=== PATIENT | male | born 1985 | race Caucasian/White ===

== ENCOUNTER 2019-03-22 18:40 | Emergency (ER) | payer OTHER ==
[~2019-03-22] VITALS: Ht 185.4 cm; Wt 104.3 kg
[~2019-03-22 18:40] MED LIST: PRM25T PO; RNT150T PO
[2019-03-22 21:06] LABS: HEMOGLOBIN 14.1 G/DL (13.3-17.7); MEAN PLATELET VOLUME 8.4 FL (7.4-10.4); RED CELL DISTRIBUTION WIDTH 12.3 % (10.0-14.5); WHITE BLOOD COUNT 6.9 10^3/uL (4.3-11.0)
--- NOTE | 2019-03-22 21:28 | NUR ---
CALLED REPORT TO RAKEL KHALIL @ [facility]
[2019-03-22] MEDS ORDERED: ENOXAPARIN 100 MG/1 ML (LOVENOX) SYR SC ONE (21:30)
--- NOTE | 2019-03-22 21:37 | ED Lower Extremity ---
General Chief Complaint: Lower Extremity Stated Complaint: RT LEG PAIN,SWELLING Nursing Triage Note: Pt complaining of right leg pain that started a few days ago. Leg is swollen, no redness present. Nursing Sepsis Screen: No Definite Risk Source: patient Exam Limitations: no limitations History of Present Illness Date Seen by Provider: March 22, 2019 Time Seen by Provider: 20:02 Initial Comments This 33-year-old gentleman presents to the emergency room with 3-4 days of progressive pain and swelling in the right lower extremity between the knee and ankle. He denies any injury of any kind. He denies any sedentary periods of time. He has an active job as a kori. He does smoke. He has no history of DVT but he is concerned about DVT at this time. He denies any chest pain or shortness of breath. Allergies and Home Medications Allergies Coded Allergies: Cefaclor (Verified Adverse Reaction, Mild, hives, 02/17/12) Home Medications Apixaban 5 Mg Tablet, 10 MG PO BID Prescribed by: KIM OLSEN on 03/22/192150 Promethazine Hcl 25 Mg Tablet, 1 TAB PO Q8HR PRN, (Reported) Ranitidine Hcl 150 Mg Tablet, 1 TAB PO BID Prescribed by: SATINDER ROQUE on 02/17/12 0253 Patient Home Medication List Home Medication List Reviewed: Yes Review of Systems Constitutional: no symptoms reported EENTM: no symptoms reported Respiratory: no symptoms reported Cardiovascular: see HPI Gastrointestinal: no symptoms reported Genitourinary: no symptoms reported Musculoskeletal: see HPI Skin: no symptoms reported Psychiatric/Neurological: No Symptoms Reported Past Scgsphf-Fdxipn-Iuqnva Hx Past Med/Social Hx: Reviewed and Corrections made Patient Social History Alcohol Use: Denies Use Recreational Drug Use: No Smoking Status: Current Everyday Smoker 2nd Hand Smoke Exposure: No Recent Foreign Travel: No Contact w/Someone Who Travel: No Recent Infectious Disease Expo: No Recent Hopitalizations: No Seasonal Allergies Seasonal Allergies: No Past Medical History Surgeries: No Respiratory: No Cardiac: No Neurological: No Genitourinary: No Gastrointestinal: No Musculoskeletal: No Endocrine: No HEENT: No Cancer: No Psychosocial: No Integumentary: No Blood Disorders: No Physical Exam Vital Signs Vital Signs - First Documented 03/22/19 19:10 Temp 98.0 Pulse 125 Resp 18 B/P (MAP) 155/95 (115) Pulse Ox 100 O2 Delivery Room Air Capillary Refill : Less Than 3 Seconds Height, Weight, BMI Height: 6'1.00" Weight: 230lbs. oz. 104.682579wx; BMI Method:Stated General Appearance: WD/WN, no apparent distress HEENT: PERRL/EOMI, normal ENT inspection Neck: normal inspection Cardiovascular: regular rate, rhythm, no edema, no murmur Respiratory: lungs clear, normal breath sounds, no respiratory distress, no accessory muscle use Gastrointestinal: soft Legs: left leg non-tender, left leg normal inspection; bilateral leg normal range of motion, bilateral leg no evidence of injury; right leg pain, right leg soft tissue tenderness, right leg swelling, right leg other (normal pedal pulses and capillary refill) Knees: bilateral knee non-tender, bilateral knee normal inspection, bilateral knee normal range of motion, bilateral knee no evidence of injury Ankles: bilateral ankle non-tender; left ankle normal inspection; bilateral ankle normal range of motion; right ankle swelling Feet: bilateral foot non-tender, bilateral foot normal inspection, bilateral foot normal range of motion, bilateral foot no evidence of injury Neurologic/Tendon: normal sensation, normal motor functions, normal tendon functions 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, no motor/sensory deficits, alert, normal mood/affect, oriented x 3 Skin: normal color, warm/dry Progress/Results/Core Measures Results/Orders Lab Results Laboratory Tests Test 03/22/19 20:33 Range/Units White Blood Count 6.9 4.3-11.0 10^3/uL Red Blood Count 4.72 4.35-5.85 10^6/uL Hemoglobin 14.1 13.3-17.7 G/DL Hematocrit 42 40-54 % Mean Corpuscular Volume 89 80-99 FL Mean Corpuscular Hemoglobin 30 25-34 PG Mean Corpuscular Hemoglobin Concent 34 32-36 G/DL Red Cell Distribution Width 12.3 10.0-14.5 % Platelet Count 430 H 130-400 10^3/uL Mean Platelet Volume 8.4 7.4-10.4 FL D-Dimer 2.13 H 0.00-0.49 UG/ML My Orders Orders - KIM BERNARDO MD Fibrin Degradation Products (03/22/19 20:06) Cbc No Diff (03/22/19 21:01) Enoxaparin Injection (Lovenox Injection) (03/22/19 21:30) Medications Given in ED Current Medications Medications Dose Ordered Sig/Fabiola Route Start Time Stop Time Status Last Admin Dose Admin Enoxaparin Sodium 100 mg ONCE ONCE SC 03/22/19 21:30 03/22/19 21:31 DC 03/22/19 21:26 100 MG Vital Signs/I&O 03/22/19 03/22/19 19:10 21:59 Temp 98.0 98.0 Pulse 125 88 Resp 18 18 B/P (MAP) 155/95 (115) 146/88 (107) Pulse Ox 100 100 O2 Delivery Room Air Blood Pressure Mean: 115 Progress Progress Note : Progress Note D-dimer was significantly elevated. Symptoms are suspicious for DVT. Patient was given a Lovenox injection. We discussed transferring to another facility for ultrasound versus empirically treating with Eliquis until ultrasound can be obtained locally. Patient elects the latter option as it will likely ultimately cost him less than a repeat ER visit. A prescription for an ultrasound was written with instructions to call results to Dr. Roque or Dr. Bernardo as patient has no primary care provider. No ultrasound services are available here through the weekend. I discussed the risks and benefits of empirically treating with Eliquis until DVT is confirmed with ultrasound. Patient expressed understanding. Departure Impression Primary Impression: Suspected DVT (deep vein thrombosis) Disposition: 01 HOME, SELF-CARE Condition: Improved Departure-Patient Inst. Decision time for Depature: 21:48 Referrals: NO,LOCAL PHYSICIAN (PCP/Family) Primary Care Physician Patient Instructions: Deep Vein Thrombosis (Blood Clots in the Legs) (DC) Add. Discharge Instructions: Follow-up with your primary care provider soon as possible. Present to [facility] on Monday, March 25 for an ultrasound. You may come to the hospital any time after 7:30 in the morning. In the meantime, take Eliquis twice daily as prescribed. Do not miss any doses. Stop Eliquis and presented to the emergency room if you have any unusual bleeding. Avoid any activities at risk for trauma while on Eliquis. Also return to the emergency room if you have any worsening of symptoms or development of new symptoms such as chest pain or shortness of breath. Work toward quitting smoking and seek help from your doctor if necessary. All discharge instructions reviewed with patient and/or family. Voiced understanding. Scripts Apixaban (Eliquis) 5 Mg Tablet 10 MG PO BID, #28 TAB Prov: KIM BERNARDO MD 03/22/19 KIM BERNARDO MD March 22, 2019 21:37
[2019-03-22] MEDS ORDERED: APIX5TAB PO (21:51)
[2019-03-22 21:59] VITALS: BP 146/88
== END 2019-03-22 21:59 | disposition home or self-care (01) ==
LOC: EDUNIT# 18:40 → ER 18:42
DX: M79.604 Pain in right leg (principal); M79.89 Other specified soft tissue disorders; F17.200 Nicotine dependence, unspecified, uncomplicated; Z88.1 Allergy status to other antibiotic agents; Z79.01 Long term (current) use of anticoagulants
CPT/HCPCS: 36415; 85027; 85379; 99284

== ENCOUNTER → 2019-03-26 | Outpatient (CLI) | payer OTHER ==
[~2019-03-26] MED LIST changes: +APIX5TAB PO
--- NOTE | 2019-03-26 12:30 | Diagnostic Imaging Report ---
PROCEDURE: US right lower extremity venous. TECHNIQUE: Multiple real-time grayscale images were obtained over the right lower extremity in various projections. Additional spectral analysis and color Doppler duplex images were also obtained. INDICATION: Right calf pain. FINDINGS: Right common femoral, superficial femoral and popliteal veins are widely patent showing normal compressibility with normal response to augmentation and Valsalva. There does appear to be some thrombus within the peroneal veins in the upper calf. No fluid collection is seen. IMPRESSION: No evidence of right lower extremity femoral-popliteal DVT. There is thrombus identified in the peroneal veins within the calf. Dictated by: Dictated on workstation # [id number]
== END ==
LOC: RAD 11:46
PROVIDERS: ATTEND Family Medicine
DX: I82.4Z1 Acute embolism and thrombosis of unspecified deep veins of right distal lower extremity (principal); R79.1 Abnormal coagulation profile

== ENCOUNTER 2020-03-13 17:24 | Emergency (ER) | payer SELFPAY ==
[~2020-03-13] VITALS: Ht 185.4 cm; Wt 104.3 kg
[2020-03-13 17:40] LABS: BASOPHILS # (AUTO) 0.1 10^3/uL (0.0-0.1); BASOPHILS % (AUTO) 1 % (0-10); EOSINOPHILS % (AUTO) 0 % (0-10); HEMATOCRIT 44 % (40-54); HEMOGLOBIN 14.9 G/DL (13.3-17.7); LYMPHOCYTES # (AUTO) 4.3 X 10^3 (1.0-4.0); LYMPHOCYTES % (AUTO) 40 % (12-44); MEAN CORPUSCULAR HEMOGLOBIN 30 PG (25-34); MEAN CORPUSCULAR HGB CONC 34 G/DL (32-36); MEAN CORPUSCULAR VOLUME 90 FL (80-99); MEAN PLATELET VOLUME 8.1 FL (7.4-10.4); MONOCYTES # (AUTO) 0.9 X 10^3 (0.0-1.0); MONOCYTES % (AUTO) 8 % (0-12); NEUTROPHILS # (AUTO) 5.5 X 10^3 (1.8-7.8); NEUTROPHILS % (AUTO) 51 % (42-75); PLATELET COUNT 473 10^3/uL (130-400); RED CELL DISTRIBUTION WIDTH 12.8 % (10.0-14.5); WHITE BLOOD COUNT 10.8 10^3/uL (4.3-11.0)
[2020-03-13] MEDS ORDERED: NS IV 1000 ML 1,000 ML IV SCH (17:45)
[2020-03-13] MEDS ORDERED: fentaNYL INJECTION 100 MCG/2 ML AMP IVP ONE (17:45)
[2020-03-13] MEDS ORDERED: KETOROLAC 30 MG/ML VIAL IVP ONE (17:45)
[2020-03-13 17:51] LABS: ALBUMIN 4.3 GM/DL (3.2-4.5)
[2020-03-13 17:52] LABS: POTASSIUM 3.2 MMOL/L (3.6-5.0)
[2020-03-13 17:53] LABS: BILIRUBIN,URINE NEGATIVE (NEGATIVE); CLARITY,URINE CLEAR; COLOR,URINE YELLOW; GLUCOSE, URINE (UA) NEGATIVE (NEGATIVE); KETONES,URINE NEGATIVE (NEGATIVE); LEUKOCYTE ESTERASE ,URINE NEGATIVE (NEGATIVE); NITRITE,URINE NEGATIVE (NEGATIVE); PROTEIN,URINE TRACE (NEGATIVE)
[2020-03-13 17:53] LABS: CALCIUM 9.8 MG/DL (8.5-10.1)
[2020-03-13 17:54] LABS: TOTAL PROTEIN 7.6 GM/DL (6.4-8.2)
[2020-03-13 17:56] LABS: BILIRUBIN,TOTAL 0.3 MG/DL (0.1-1.0)
[2020-03-13 17:57] LABS: CREATININE SERUM 1.61 MG/DL (0.60-1.30)
[2020-03-13 18:00] LABS: BACTERIA,URINE FEW /HPF; SQUAMOUS EPITHELIAL CELL,UR RARE /HPF; WBC,URINE 0-2 /HPF
[2020-03-13] MEDS ORDERED: morphine INJ 10 MG/ML 1ML (SYR OR VIAL) IVP STA (18:00)
--- NOTE | 2020-03-13 18:04 | ED Abdominal Pain ---
General Chief Complaint: Abdominal/GI Problems Stated Complaint: PAIN IN LRQ Source of Information: Patient Exam Limitations: No Limitations History of Present Illness Date Seen by Provider: March 13, 2020 Time Seen by Provider: 17:30 Initial Comments To ER with sudden onset right flank pain 15 minutes ago. No known injury. No dysuria. He states that he does report many years ago and was told he was dehydrated. Timing/Duration: 1/2 Hour Severity/Quality: Severe Location: Flank Radiation: No Radiation Activities at Onset: None Associated Symptoms: Diaphoresis, Nausea/Vomiting Allergies and Home Medications Allergies Coded Allergies: Penicillins (Verified Allergy, Unknown, 03/13/20) Home Medications Apixaban 5 Mg Tablet, 10 MG PO BID Prescribed by: KIM OLSEN on 03/22/192150 Promethazine Hcl 25 Mg Tablet, 1 TAB PO Q8HR PRN, (Reported) Ranitidine Hcl 150 Mg Tablet, 1 TAB PO BID Prescribed by: SATINDER ROQUE on 02/17/12 0253 Patient Home Medication List Home Medication List Reviewed: Yes Review of Systems Review of Systems Constitutional: see HPI, diaphoresis EENTM: No Symptoms Reported Respiratory: No Symptoms Reported Cardiovascular: No Symptoms Reported Gastrointestinal: See HPI, Abdominal Pain, Nausea Genitourinary: No Symptoms Reported Musculoskeletal: no symptoms reported Skin: no symptoms reported Psychiatric/Neurological: No Symptoms Reported Endocrine: No Symptoms Reported Hematologic/Lymphatic: No Symptoms Reported Past Vtmjebh-Gxcnjp-Swxitx Hx Patient Social History 2nd Hand Smoke Exposure: No Recent Foreign Travel: No Contact w/Someone Who Travel: No Recent Hopitalizations: No Seasonal Allergies Seasonal Allergies: No Past Medical History Surgeries: No Respiratory: No Cardiac: No Neurological: No Genitourinary: No Gastrointestinal: No Musculoskeletal: No Endocrine: No HEENT: No Cancer: No Psychosocial: No Integumentary: No Blood Disorders: No Physical Exam Vital Signs Vital Signs - First Documented 03/13/20 03/13/20 17:30 18:24 Temp 36.9 Pulse 107 Resp 20 B/P (MAP) 140/90 (107) Pulse Ox 100 O2 Delivery Room Air O2 Flow Rate 2.00 Capillary Refill : Height/Weight/BMI Height: 6'1.00" Weight: 230lbs. oz. 104.065113dr; BMI Method:Stated General Appearance: WD/WN, moderate distress (related to pain, laying on the floor in the waiting room. Diaphoretic.) HEENT: PERRL/EOMI, normal ENT inspection Neck: non-tender, full range of motion Respiratory: no respiratory distress, no accessory muscle use Cardiovascular: regular rate, rhythm, no murmur Gastrointestinal: normal bowel sounds, soft Extremities: normal range of motion, non-tender Neurologic/Psychiatric: alert, normal mood/affect, oriented x 3 Skin: normal color, warm/dry Progress/Results/Core Measures Results/Orders Lab Results Laboratory Tests Test 03/13/20 17:30 03/13/20 17:45 Range/Units White Blood Count 10.8 4.3-11.0 10^3/uL Red Blood Count 4.91 4.35-5.85 10^6/uL Hemoglobin 14.9 13.3-17.7 G/DL Hematocrit 44 40-54 % Mean Corpuscular Volume 90 80-99 FL Mean Corpuscular Hemoglobin 30 25-34 PG Mean Corpuscular Hemoglobin Concent 34 32-36 G/DL Red Cell Distribution Width 12.8 10.0-14.5 % Platelet Count 473 H 130-400 10^3/uL Mean Platelet Volume 8.1 7.4-10.4 FL Neutrophils (%) (Auto) 51 42-75 % Lymphocytes (%) (Auto) 40 12-44 % Monocytes (%) (Auto) 8 0-12 % Eosinophils (%) (Auto) 0 0-10 % Basophils (%) (Auto) 1 0-10 % Neutrophils # (Auto) 5.5 1.8-7.8 X 10^3 Lymphocytes # (Auto) 4.3 H 1.0-4.0 X 10^3 Monocytes # (Auto) 0.9 0.0-1.0 X 10^3 Eosinophils # (Auto) 0.0 0.0-0.3 10^3/uL Basophils # (Auto) 0.1 0.0-0.1 10^3/uL Sodium Level 139 135-145 MMOL/L Potassium Level 3.2 L 3.6-5.0 MMOL/L Chloride Level 102 98-107 MMOL/L Carbon Dioxide Level 22 21-32 MMOL/L Anion Gap 15 H 5-14 MMOL/L Blood Urea Nitrogen 17 7-18 MG/DL Creatinine 1.61 H 0.60-1.30 MG/DL Estimat Glomerular Filtration Rate 50 BUN/Creatinine Ratio 11 Glucose Level 102 70-105 MG/DL Calcium Level 9.8 8.5-10.1 MG/DL Corrected Calcium 9.6 8.5-10.1 MG/DL Total Bilirubin 0.3 0.1-1.0 MG/DL Aspartate Amino Transf (AST/SGOT) 19 5-34 U/L Alanine Aminotransferase (ALT/SGPT) 17 0-55 U/L Alkaline Phosphatase 96 40-136 U/L Total Protein 7.6 6.4-8.2 GM/DL Albumin 4.3 3.2-4.5 GM/DL Urine Color YELLOW Urine Clarity CLEAR Urine pH 6.0 5-9 Urine Specific Morton >=1.030 1.016-1.022 Urine Protein TRACE H NEGATIVE Urine Glucose (UA) NEGATIVE NEGATIVE Urine Ketones NEGATIVE NEGATIVE Urine Nitrite NEGATIVE NEGATIVE Urine Bilirubin NEGATIVE NEGATIVE Urine Urobilinogen 0.2 < = 1.0 MG/DL Urine Leukocyte Esterase NEGATIVE NEGATIVE Urine RBC (Auto) NEGATIVE NEGATIVE Urine RBC NONE /HPF Urine WBC 0-2 /HPF Urine Squamous Epithelial Cells RARE /HPF Urine Crystals NONE /LPF Urine Bacteria FEW H /HPF Urine Casts NONE /LPF Urine Mucus MODERATE H /LPF Urine Culture Indicated NO Urine Opiates Screen NEGATIVE NEGATIVE Urine Oxycodone Screen NEGATIVE NEGATIVE Urine Methadone Screen NEGATIVE NEGATIVE Urine Propoxyphene Screen NEGATIVE NEGATIVE Urine Barbiturates Screen NEGATIVE NEGATIVE Ur Tricyclic Antidepressants Screen NEGATIVE NEGATIVE Urine Phencyclidine Screen NEGATIVE NEGATIVE Urine Amphetamines Screen POSITIVE H NEGATIVE Urine Methamphetamines Screen POSITIVE H NEGATIVE Urine Benzodiazepines Screen NEGATIVE NEGATIVE Urine Cocaine Screen NEGATIVE NEGATIVE Urine Cannabinoids Screen NEGATIVE NEGATIVE My Orders Orders - VU TRIVEDI APRN Cbc With Automated Diff (03/13/20 17:33) Comprehensive Metabolic Panel (03/13/20 17:33) Ua Culture If Indicated (03/13/20 17:33) Abdomen/Kub 1view (03/13/20 17:33) Ct Abd/Pelvis Wo(Kidney Stone) (03/13/20 17:33) Ns Iv 1000 Ml (Sodium Chloride 0.9%) (03/13/20 17:45) Ketorolac Injection (Toradol Injection) (03/13/20 17:45) Fentanyl Injection (Sublimaze Injection (03/13/20 17:45) Morphine Injection (Morphine Injection (03/13/20 18:00) Drug Screen Stat (Urine) (03/13/20 18:02) Ct Abdomen/Pelvis W (03/13/20 18:35) Abdomen, Flat & Upright/Decub (03/13/20 18:35) Hydromorphone Injection (Dilaudid Inject (03/13/20 18:45) Medications Given in ED Current Medications Medications Dose Ordered Sig/Fabiola Route Start Time Stop Time Status Last Admin Dose Admin Fentanyl Citrate 50 mcg ONCE ONCE IVP 03/13/20 17:45 03/13/20 17:46 DC 03/13/20 17:38 50 MCG Ketorolac Tromethamine 15 mg ONCE ONCE IVP 03/13/20 17:45 03/13/20 17:46 DC 03/13/20 17:41 15 MG Vital Signs/I&O 03/13/20 03/13/20 17:30 18:24 Temp 36.9 Pulse 107 Resp 20 B/P (MAP) 140/90 (107) Pulse Ox 100 88 O2 Delivery Room Air Nasal Cannula O2 Flow Rate 2.00 Diagnostic Imaging Diagonstic Imaging: Xray, CT Comments NAME: JUDY MUNIZ [facility] REC#: [id number] PT STATUS: REG ER : 1985 PHYSICIAN: VU TRIVEDI APRN ADMIT DATE: 03/13/20/ER Draft Date of Exam:03/13/20 ABDOMEN/KUB 1VIEW INDICATION: Right lower quadrant pain. FINDINGS: There are no findings to suggest a stone projecting over the renal shadows or expected course of the ureters. The calcification in the right pelvis is known to reflect a phlebolith. The bowel gas pattern is nonobstructed. There are no suspicious osseous lesions. IMPRESSION: 1. No plain film findings of urolithiasis. 2. Nonobstructed bowel gas pattern. Dictated on workstation # [id number] Dict: 03/13/201816 Trans: 03/13/201820 [id number] Interpreted by: MAGGIE DENNY MD Electronically signed by: Departure Communication (Admissions) 1838-spoke with Dr. Mckeon from urology. Suggests 1 L of IV fluids, antibiotics and pain medication, follow up with him in the clinic on Monday. However given the patient's intolerable pain despite significant parenteral analgesics, it would be best to admit him for continued parenteral analgesics as oral would be unlikely to be sufficient. As such we will do a contrast enhanced CT followed by KUB/upright, admitted for pain control hydration and Dr. Mckeon will see him in the morning. 1908-spoke with Dr. Denny from radiology, does feel that IV pyelogram or CT with contrast would be important helpful but currentkidneyfunctionwouldbebesttohydratehiminthemeantime,thiscouldbedoneoutpati entinthe. 1909-spoke with the patient, his pain is tolerable, go home proceed with outpatient workup. He agrees to return for any intolerable pain, fevers or other concerns over the weekend. Impression Primary Impression: Ureteral obstruction, right Additional Impression: Intractable pain Disposition: ADMITTED INPATIENT Condition: Stable Admissions Decision to Admit Reason: Admit from ER (General) Decision to Admit/Date: March 13, 2020 Time/Decision to Admit Time: 18:38 Departure-Patient Inst. Decision time for Depature: 19:13 Referrals: NO,LOCAL PHYSICIAN (PCP) Primary Care Physician DAVON MCKEON MD Patient Instructions: NO INSTRUCTIONS GIVEN Add. Discharge Instructions: 1. Follow-up with Dr. Mckeon. Call Monday to make an appointment to be seen. Return to ER for any fevers or intolerable pain in the meantime. Drink lots of fluids, specifically water over the weekend. All discharge instructions reviewed with patient and/or family. Voiced understanding. Scripts Ciprofloxacin HCl (Ciprofloxacin HCl) 500 Mg Tablet 500 MG PO BID, #14 TAB Prov: VU TRIVEDI APRN 03/13/20 Tamsulosin HCl (Flomax) 0.4 Mg Cap 0.4 MG PO DAILY, #14 CAP Prov: VU TRIVEDI APRN 03/13/20 VU TRIVEDI APRN March 13, 2020 18:04
--- NOTE | 2020-03-13 18:21 | Diagnostic Imaging Report ---
INDICATION: Right lower quadrant pain. FINDINGS: There are no findings to suggest a stone projecting over the renal shadows or expected course of the ureters. The calcification in the right pelvis is known to reflect a phlebolith. The bowel gas pattern is nonobstructed. There are no suspicious osseous lesions. IMPRESSION: 1. No plain film findings of urolithiasis. 2. Nonobstructed bowel gas pattern. Dictated by: Dictated on workstation # [id number]
--- NOTE | 2020-03-13 18:27 | Diagnostic Imaging Report ---
PROCEDURE: CT urinary tract, rule out kidney stone. TECHNIQUE: Multiple contiguous axial images were obtained through the abdomen and pelvis without the use of intravenous contrast. Auto Exposure Controls were utilized during the CT exam to meet ALARA standards for radiation dose reduction. INDICATION: Right lower quadrant pain. FINDINGS: The lung bases appear clear without infiltrate or evidence of an effusion. Liver demonstrates no evidence of focal abnormality. The gallbladder is nondistended without radiodense gallstone or biliary dilatation. The spleen is normal in size. Pancreas is unremarkable. There is no adrenal mass. Left kidney is nonobstructed. Right kidney demonstrates moderate right-sided hydronephrosis and hydroureter. The density demonstrated within the right renal pelvis is greater than the density of the urine within the urinary bladder. Blood products within the collecting system would be a consideration. There are no current findings of a radiodense stone. Calcification within the right pelvis is a phlebolith that is lateral to the distal ureter. There are no findings of bowel obstruction. There is no abnormal bowel thickening. The appendix is normal. There are no findings of pelvic free fluid or abscess. There is no adenopathy. There are fat-containing inguinal hernias. No acute or suspicious osseous abnormality demonstrated. IMPRESSION: 1. Moderate right-sided hydronephrosis and hydroureter. There are no findings of a radiodense stone within the collecting system or bladder. 2. The measured density of the right renal pelvis is measured at the Hounsfield measurement of 31 within the urinary bladder measuring only 10 Hounsfield units. This would therefore suggest the possibility of blood products or proteinaceous debris within the right collecting system. Given this density, while felt to be unlikely, a soft tissue density mass within the renal pelvis would need to remain within the differential considerations. Follow-up with a contrast-enhanced examination is recommended. Dictated by: Dictated on workstation # [id number]
[2020-03-13 18:41] LABS: AMPHETAMINE SCREEN, URINE POSITIVE (NEGATIVE); BARBITURATE SCREEN URINE NEGATIVE (NEGATIVE); BENZODIAZEPINES SCREEN URINE NEGATIVE (NEGATIVE); CANNABINOID SCREEN, URINE NEGATIVE (NEGATIVE); COCAINE SCREEN URINE NEGATIVE (NEGATIVE); METHADONE STAT NEGATIVE (NEGATIVE); METHAMPHETAMINE SCREEN URINE S POSITIVE (NEGATIVE); OPIATE SCREEN URINE NEGATIVE (NEGATIVE); OXYCODONE STAT NEGATIVE (NEGATIVE); PROPOXYPHENE STAT NEGATIVE (NEGATIVE); TRICYCLIC ANTIDEPRESSANTS SCRE NEGATIVE (NEGATIVE)
[2020-03-13] MEDS ORDERED: HYDROmorphone 2 MG/ML VIAL (DILAUDID) IV ONE (18:45)
--- NOTE | 2020-03-13 19:06 | NUR ---
Report given to SIMRAN Haider
[2020-03-13] MEDS ORDERED: TMSL.4C PO (19:15)
[2020-03-13] MEDS ORDERED: OXYC1TAB87 PO (19:15)
[2020-03-13] MEDS ORDERED: CIPR500T4 PO (19:15)
--- OUTSIDE RECORDS SUMMARY | 2020-03-13 19:22 | XMS REPORT | Continuity of Care Document ---
Author Organization Unknown Address Unknown Phone Unavailable Allergies Active Description Code Type Severity Reaction Onset Reported/Identified Relationship to Patient Clinical Status Yes cefaclor [id number] Drug Allergy Mild hives 02/17/2012 Yes Penicillins [id number] Drug Aller gy Unknown N/A 03/13/2020 Medications There is no data. Problems Date Dx Coded Attending Type Code Diagnosis Diagnosed By 03/22/2019 KIM MCGRATH MD, Ot F17.200 NICOTINE DEPENDENCE, UNSPECIFIED, UNCOMP 03/22/2019 KIM MCGRATH MD Ot M79.604 PAIN IN RIGHT LEG 03/22/2019 KIM MCGRATH MD Ot M79.89 OTHER SPECIFIED SOFT TISSUE DISORDERS 03/22/2019 KIM MCGRATH MD Ot Z79.01 CORRECTION (CURRENT) USE OF ANTICOAGULANT 03/22/2019 KIM MCGRATH MD Ot Z88.1 ALLERGY STATUS TO OTHER ANTIBIOTIC AGENT 03/27/2019 KIM MCGRATH MD Ot I82.4Z1 AC EMBLSM AND THOMBOS UNSP DEEP VEINS OF 03/27/2019 KIM MCGRATH MD Ot R79.1 ABNORMAL COAGULATION PROFILE 03/30/2019 KIM MCGRATH MD Ot F17.200 NICOTINE DEPENDENCE, UNSPECIFIED, UNCOMP 03/30/2019 KIM MCGRATH MD Ot M79.604 PAIN IN RIGHT LEG 03/30/2019 KIM MCGRATH MD Ot M79.89 OTHER SPECIFIED SOFT TISSUE DISORDERS 03/30/2019 KIM MCGRATH MD Ot Z79.01 CORRECTION (CURRENT) USE OF ANTICOAGULANT 03/30/2019 KIM MCGRATH MD Ot Z88.1 ALLERGY STATUS TO OTHER ANTIBIOTIC AGENT 05/28/2019 KIM MCGRATH MD Ot I82.4Z1 AC EMBLSM AND THOMBOS UNSP DEEP VEINS OF 05/28/2019 KIM MCGRATH MD, Ot R79.1 ABNORMAL COAGULATION PROFILE 05/28/2019 KIM MCGRATH MD, Ot I82.4Z1 AC EMBLSM AND THOMBOS UNSP DEEP VEINS OF 05/28/2019 KIM MCGRATH MD, Ot R79.1 ABNORMAL COAGULATION PROFILE 05/29/2019 KIM MCGRATH MD, Ot F17.200 NICOTINE DEPENDENCE, UNSPECIFIED, UNCOMP 05/29/2019 KIM MCGRATH MD, Ot M79.604 PAIN IN RIGHT LEG 05/29/2019 KIM MCGRATH MD, Ot M79.89 OTHER SPECIFIED SOFT TISSUE DISORDERS 05/29/2019 KIM MCGRATH MD, Ot 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 Results Test Result Range Fibrin D-dimer FEU measurement in platel et poor plasma (mass/volume) - 03/22/19 20:33 Fibrin D-dimer FEU measurement in platelet poor plasma (mass/volume) 2.13 ug/mL 0.00-0.49 Automated blood complete blood count (he mogram) panel - 03/22/19 20:33 Blood leukocytes automated count (number/volume) 6.9 10*3/uL 4.3-11.0 Blood erythrocytes automated count (number/volume) 4.72 10*6/uL 4.35-5.85 Venous blood hemoglobin measurement (mass/volume) 14.1 g/dL 13.3-17.7 Blood hematocrit (volume fraction) 42 % 40-54 Automated erythrocyte mean corpuscular volume 89 [ foz_us] 80-99 Automated erythrocyte mean corpuscular h emoglobin (mass per erythrocyte) 30 pg 25-34 Automated erythrocyte mean corpuscular h emoglobin concentration measurement (mass/volume) 34 g/dL 32-36 Automated erythrocyte distribution width ratio 12. 3 % 10.0- 14.5 Automated blood platelet count (count/volume) 430 10*3/uL 130-400 Automated blood platelet mean volume measurement 8.4 [foz_us] 7.4-10.4 Complete blood count (CBC) with automate d white blood cell (WBC) differential - 03/13/20 17:30 Blood leukocytes automated count (number/volume) 10.8 10*3/uL 4.3-11.0 Blood erythrocytes automated count (number/volume) 4.91 10*6/uL 4.35-5.85 Venous blood hemoglobin measurement (mass/volume) 14.9 g/dL 13.3-17.7 Blood hematocrit (volume fraction) 44 % 40-54 Automated erythrocyte mean corpuscular volume 90 [ foz_us] 80-99 Automated erythrocyte mean corpuscular h emoglobin (mass per erythrocyte) 30 pg 25-34 Automated erythrocyte mean corpuscular h emoglobin concentration measurement (mass/volume) 34 g/dL 32-36 Automated erythrocyte distribution width ratio 12. 8 % 10.0- 14.5 Automated blood platelet count (count/volume) 473 10*3/uL 130-400 Automated blood platelet mean volume measurement 8.1 [foz_us] 7.4-10.4 Automated blood neutrophils/100 leukocytes 51 % 42-75 Automated blood lymphocytes/100 leukocytes 40 % 12-44 Blood monocytes/100 leukocytes 8 % 0-12 Automated blood eosinophils/100 leukocytes 0 % 0-10 Automated blood basophils/100 leukocytes 1 % 0-10 Blood neutrophils automated count (number/volume) 5.5 10*3 1.8-7.8 Blood lymphocytes automated count (number/volume) 4.3 10*3 1.0-4.0 Blood monocytes automated count (number/volume) 0. 9 10*3 0.0-1.0 Automated eosinophil count 0.0 10*3/uL 0 .0-0.3 Automated blood basophil count (count/volume) 0.1 10*3/uL 0.0-0.1 Comprehensive metabolic panel - 03/13/20 17:30 Serum or plasma sodium measurement (moles/volume) 139 mmol/L 135-145 Serum or plasma potassium measurement (moles/volume) 3.2 mmol/L 3.6-5.0 Serum or plasma chloride measurement (moles/volume) 102 mmol/L 98-107 Carbon dioxide 22 mmol/L 21-32 Serum or plasma anion gap determination (moles/volume) 15 mmol/L 5-14 Serum or plasma urea nitrogen measurement (mass/volume ) 17 mg/dL 7-18 Serum or plasma creatinine measurement (mass/volume) 1.61 mg/dL 0.60-1.30 Serum or plasma urea nitrogen/creatinine mass ratio 11 NRG Serum or plasma creatinine measurement w ith calculation of estimated glomerular filtration rate 50 NRG Serum or plasma glucose measurement (mass/volume) 102 mg/dL 70-105 Serum or plasma calcium measurement (mass/volume) 9.8 mg/dL 8.5-10.1 Serum or plasma total bilirubin measurement (mass/volu me) 0.3 mg/dL 0.1-1.0 Serum or plasma alkaline phosphatase naima surement (enzymatic activity/volume) 96 U/L 40-136 Serum or plasma aspartate aminotransfera se measurement (enzymatic activity/volume) 19 U/L 5-34 Serum or plasma alanine aminotransferase measurement (enzymatic activity/volume) 17 U/L 0-55 Serum or plasma protein measurement (mass/volume) 7.6 g/dL 6.4-8.2 Serum or plasma albumin measurement (mass/volume) 4.3 g/dL 3.2-4.5 CALCIUM CORRECTED 9.6 mg/dL 8.5-10.1 Complete urinalysis with reflex to cultu re - 03/13/20 17:45 Urine color determination YELLOW NRG Urine clarity determination CLEAR NR G Urine pH measurement by test strip 6.0 5-9 Specific gravity of urine by test strip >= 1.016-1.022 Urine protein assay by test strip, semi-quantitative TRACE NEGATIVE Urine glucose detection by automated test strip NE GATIVE NEGATIVE Erythrocytes detection in urine sediment by light micr oscopy NEGATIVE NEGATIVE Urine ketones detection by automated test strip NE GATIVE NEGATIVE Urine nitrite detection by test strip NEGATIVE NEGATIVE Urine total bilirubin detection by test strip NEGA TIVE NEGATIVE Urine urobilinogen measurement by automated test strip (mass/volume) 0.2 mg/dL < = 1.0 Urine leukocyte esterase detection by dipstick NEG ATIVE NEGATIVE Automated urine sediment erythrocyte cou nt by microscopy (number/high power field) NONE NRG Automated urine sediment leukocyte count by microscopy (number/high power field) [HPF] NRG Bacteria detection in urine sediment by light microsco py FEW NRG Squamous epithelial cells detection in u rine sediment by light microscopy RARE NRG Crystals detection in urine sediment by light microsco py NONE NRG Casts detection in urine sediment by light microscopy NONE NRG Mucus detection in urine sediment by light microscopy MODERATE NRG Complete urinalysis with reflex to culture NO NRG Urine drug screening test - 03/13/20 17: 45 Urine phencyclidine detection by screening method NEGATIVE NEGATIVE Urine benzodiazepines detection by screening method NEGATIVE NEGATIVE Urine cocaine detection NEGATIVE NEGATI VE Urine amphetamines detection by screening method P OSITIVE NEGATIVE Urine methamphetamine detection by screening method POSITIVE NEGATIVE Urine cannabinoids detection by screening method N EGATIVE NEGATIVE Urine opiates detection by screening method NEGATI VE NEGATIVE Urine barbiturates detection NEGATIVE N EGATIVE Screening urine tricyclic antidepressants detection NEGATIVE NEGATIVE Urine methadone detection by screening method NEGA TIVE NEGATIVE Urine oxycodone detection NEGATIVE NEGA TIVE Urine propoxyphene detection NEGATIVE N EGATIVE Encounters ACCT No. Visit Date/Time Discharge Status Pt. Type Provider Facility Loc./Unit Complaint [id number] 04/01/2019 16:20:00 04/01/2019 23:59: 59 CLS Outpatient [facility] [id number] 03/26/2019 11:46:00 23:59:59 CLS Outpatient KIM MCGRATH MD [facility] RAD ELEVATED D-DIME R,RLE EDEMA [id number] 03/22/2019 18:42:00 21:59:00 DIS Outpatient KIM MCGRATH MD [facility] ER RT LEG PAIN,SWE LLING [id number] 03/13/2020 17:25:[address] Emergency VU TRIVEDI APRN [facility] ER PAIN IN LRQ
[2020-03-13] MEDS ORDERED: LEVOFLOXACIN 500 MG TAB (LEVAQUIN) PO ONE (19:30)
[2020-03-13] MEDS ORDERED: RX-OXYCODONE/APAP 5-325 MG #4 TAB PK PO PRN (19:30)
[2020-03-13 19:35] VITALS: BP 148/111
== END 2020-03-13 19:37 | disposition other institution (70) ==
LOC: EDUNIT# 17:24 → ER 17:25
DX: N13.5 Crossing vessel and stricture of ureter without hydronephrosis (principal); Z88.0 Allergy status to penicillin; Z79.01 Long term (current) use of anticoagulants
CPT/HCPCS: 36415; 74018; 74176; 80053; 80306; 81000; 85025; 96361; 96374; 96375